=== PATIENT | female | born 1930 | race Hispanic/Latino ===

== ENCOUNTER 2016-08-01 11:08 | Emergency (ER) | payer MEDICARE ==
[2016-08-01 11:08] VITALS: BMI 34.8
[2016-08-01 11:19] VITALS: O2SAT 99
--- NOTE | 2016-08-01 11:49 | ED PDOC ---
Arrival/HPI - General Chief Complaint: Dizziness/Lightheaded Time Seen by Provider: 08/01/16 11:33 - History of Present Illness Narrative History of Present Illness (Text): 85F c/o transient episode of dizziness after she instilled a large amount of hydogen peroxide solution into her right ear around 10am today. she says she was only trying to place a few drops when more came out. her sx lasted about 30 minutes and are now resolved. she also reports muffled hearing since this incident. hse was placing these drops she says due to wax in her ear. she takes zestril for BP but has not taken today. Past Medical History - Infectious Disease Hx of Infectious Diseases: None - Cardiac Hx Cardiac Disorders: Yes (LVEF 57.1%) - Pulmonary Hx Respiratory Disorders: No - Neurological Hx Neurological Disorder: No - Renal Hx Renal Disorder: No - Endocrine/Metabolic Hx Endocrine Disorders: No - Hematological/Oncological Hx Blood Disorders: No - Integumentary Hx Dermatological Disorder: No - Musculoskeletal/Rheumatological Hx Falls: No - Gastrointestinal Hx Gastrointestinal Disorders: No (bm x 3/4 days) - Genitourinary/Gynecological Hx Reproductive Disorders: No (hysterectomy yrs ago) - Psychiatric Hx Psychophysiologic Disorder: No Hx Substance Use: No - Surgical History Hx Hysterectomy: Yes - Anesthesia Hx Anesthesia: No Family/Social History Smoking Status: Never Smoked Hx Alcohol Use: No Hx Substance Use: No Allergies/Home Meds Allergies/Adverse Reactions: Allergies metronidazole [From Flagyl] Allergy (Verified 08/01/16 11:11) SWELLING Home Medications: Home Meds Medication Instructions Recorded Confirmed Atorvastatin [Lipitor] 10 mg PO DAILY 08/01/16 08/01/16 Review of Systems - Review of Systems Constitutional: absent: Fevers Eyes: absent: Vision Changes ENT: Hearing Changes Respiratory: absent: SOB Cardiovascular: absent: Chest Pain Gastrointestinal: absent: Vomiting Neurological: absent: Headache, Focal Weakness Physical Exam Vital Signs Temp Pulse Resp BP Pulse Ox 08/01/16 11:14 97.5 F L 64 20 204/99 H 99 Appearance: Positive for: Well-Appearing, Non-Toxic, Comfortable Pain Distress: None Mental Status: Positive for: Alert and Oriented X 3 - Systems Exam Head: Present: Atraumatic Pupils: Present: PERRL Extroacular Muscles: Present: EOMI Ears: Present: Other (cerumen impaction bilateral) Mouth: Present: Moist Mucous Membranes Respiratory/Chest: Present: Clear to Auscultation. No: Accessory Muscle Use Cardiovascular: Present: Regular Rate and Rhythm Neurological: Present: GCS=15, CN II-XII Intact, Motor Func Grossly Intact, Normal Sensory Function, Normal Cerebellar Funct Skin: Present: Warm, Dry Psychiatric: Present: Alert, Oriented x 3 Medical Decision Making ED Course and Treatment: 08/01/16 12:[address] Staton who states patient can follow up in the office in the next few days. - Medication Orders Current Medication Orders: Discontinued Medications Lisinopril (Zestril) 5 mg PO STAT STA Stop: 08/01/16 11:44 Lisinopril (Zestril) 10 mg PO STAT STA Stop: 08/01/16 11:44 Disposition/Present on Arrival - Present on Arrival Any Indicators Present on Arrival: No History of DVT/PE: No History of Uncontrolled Diabetes: No Urinary Catheter: No History of Decub. Ulcer: No History Surgical Site Infection Following: None - Disposition Have Diagnosis and Disposition been Completed?: Yes Diagnosis: Impacted cerumen of both ears Disposition: HOME/ ROUTINE Disposition Time: 12:21 Condition: STABLE Additional Instructions: Please follow up with the ENT specialist: call to make an appointment in the next week. Return to the ER for any worsening symptoms or for any other concerns. Referrals: Nicholas Guevara MD [Primary Care Provider] - Follow up with primary Jonathon Staton DO [Doctor Osteopathy] - Follow up with primary
[2016-08-01 13:16] VITALS: BP 186/88; PULSE 78; RESP 16; TEMP 98.6
--- NOTE | 2016-08-01 23:39 | CARD ---
APPROVED REPORT EKG Measurement Heart [id number] <Conclusion> Sinus bradycardia Nonspecific ST and T wave abnormality Abnormal ECG
== END 2016-08-01 13:21 | disposition home or self-care (01) ==
LOC: ED 11:08
DX: H61.23 Impacted cerumen, bilateral (principal)

== ENCOUNTER 2017-06-15 10:05 | Emergency (ER) | payer MEDICARE ==
[2017-06-15 10:30] VITALS: TEMP 97.5; BMI 37.8
--- NOTE | 2017-06-15 11:07 | ED PDOC ---
Arrival/HPI - General Chief Complaint: Lower Extremity Problem/Injury Time Seen by Provider: 06/15/17 10:29 Historian: Patient - History of Present Illness Narrative History of Present Illness (Text): 06/15/17 11:02 86 year old female presents to the Emergency department complaining of left knee pain for three days. Patient took Aleve x2 when pain first started and has iced it multiple times with no change in swelling or pain. Patient is unable flex or bear weight on left knee. Patient states she has never had this pain before. Patient denies fever, chills, shortness of breath, loss of sensation, trauma, recent illness, recent travel, or any other complaints. PMD: Dr. Guevara Patient is requesting Dr. Monique. Time/Duration: < week (3 days) Symptom Onset: Gradual Symptom Course: Unchanged Context: Home Past Medical History - Provider Review Nursing Documentation Reviewed: Yes - Travel History Have you recently traveled outside [place] w/in the past 3 mons?: No - Infectious Disease Hx of Infectious Diseases: None - Cardiac Hx Cardiac Disorders: Yes (LVEF 57.1%) Hx Hypertension: Yes - Pulmonary Hx Respiratory Disorders: No - Neurological Hx Neurological Disorder: No - HEENT Hx HEENT Disorder: No - Renal Hx Renal Disorder: No - Endocrine/Metabolic Hx Endocrine Disorders: No - Hematological/Oncological Hx Blood Disorders: No - Integumentary Hx Dermatological Disorder: No - Musculoskeletal/Rheumatological Hx Musculoskeletal Disorders: Yes Hx Falls: No Other/Comment: left knee - Gastrointestinal Hx Gastrointestinal Disorders: No (bm x 3/4 days) - Genitourinary/Gynecological Hx Genitourinary Disorders: No Hx Reproductive Disorders: No (hysterectomy yrs ago) - Psychiatric Hx Psychophysiologic Disorder: No Hx Substance Use: No - Surgical History Hx Cholecystectomy: Yes Hx Hysterectomy: Yes - Anesthesia Hx Anesthesia: No Family/Social History - Physician Review Nursing Documentation Reviewed: Yes Family/Social History: Unknown Family HX Smoking Status: Never Smoked Hx Alcohol Use: No Hx Substance Use: No Allergies/Home Meds Allergies/Adverse Reactions: Allergies metronidazole [From Flagyl] Allergy (Verified 06/15/17 10:26) SWELLING naproxen Allergy (Verified 06/15/17 10:26) RASH Home Medications: Home Meds Medication Instructions Recorded Confirmed Atorvastatin [Lipitor] 20 mg PO DAILY 08/01/16 06/15/17 Lisinopril [Zestril] 20 mg PO DAILY 06/15/17 06/15/17 Review of Systems - Physician Review All systems were reviewed & negative as marked: Yes - Review of Systems Constitutional: Normal. absent: Fevers Respiratory: Normal. absent: SOB Cardiovascular: Normal Gastrointestinal: Normal Musculoskeletal: Joint Swelling (left knee), Other (left knee pain) Skin: Normal Neurological: Normal Psychiatric: Normal Physical Exam Vital Signs Reviewed: Yes Vital Signs Temp Pulse Resp BP Pulse Ox 06/15/17 13:26 60 18 186/80 H 97 06/15/17 10:26 97.5 F L 73 19 160/79 H 100 Blood Pressure: Hypertensive Pulse: Regular Respiratory Rate: Normal Appearance: Positive for: Well-Appearing, Non-Toxic, Comfortable Pain Distress: None Mental Status: Positive for: Alert and Oriented X 3 - Systems Exam Head: Present: Atraumatic, Normocephalic Pupils: Present: PERRL Extroacular Muscles: Present: EOMI Conjunctiva: Present: Normal Mouth: Present: Moist Mucous Membranes Neck: Present: Normal Range of Motion Respiratory/Chest: Present: Clear to Auscultation, Good Air Exchange. No: Respiratory Distress, Accessory Muscle Use Cardiovascular: Present: Regular Rate and Rhythm, Normal S1, S2. No: Murmurs Abdomen: No: Tenderness, Distention, Peritoneal Signs Back: Present: Normal Inspection Upper Extremity: Present: Normal Inspection. No: Cyanosis, Edema Lower Extremity: Present: Normal Inspection, Tenderness (suprapatellar, medial and lateral jt line), Temperature Abnormalties (left knee warmth), Neurovascularly Intact, Other (Left knee: Active and passive range of motion limited secondary to pain. Point tenderness to joint line and suprapatellar aspect. There is warmth on palpation. Sensation is intact above and below the joint. Motor function is intact. Pulses 2+ bilaterally. ). No: CALF TENDERNESS , NORMAL PULSES, Cyanosis, Normal ROM, Aman's Sign, Erythema Neurological: Present: GCS=15, CN II-XII Intact, Speech Normal, Motor Func Grossly Intact, Normal Sensory Function Skin: Present: Warm, Dry, Normal Color. No: Rashes Psychiatric: Present: Alert, Oriented x 3, Normal Insight, Normal Concentration Medical Decision Making ED Course and Treatment: 06/15/17 11:11 Impression: 86 year old male presents to the Emergency department complaining of left knee pain and swelling. Plan: -- Left knee xray -- Urinalysis -- Labs -- Reassess and disposition Progress Notes: 06/15/17 13:35 Mastromon[place] evaluation at bedside; aspirated knee and gave steroid inj Advised dispo home and follow up in office Dx: Pseudogout - Lab Interpretations Lab Results: 06/15/17 11:20 06/15/17 11:20 Lab Results 06/15/17 12:37: Fluid Type Synovial fluid, Synovial WBC 51634.0 H, Synovial RBC 56442.0 H, Synovial Neutrophils 85.2 H, Synovial Lymphocytes 14.8 H, Synov Monos /Macrophage 0, Synovial Fluid Comment Pending 06/15/17 11:20: Sodium 149 H, Potassium 4.2, Chloride 113 H, Carbon Dioxide 23, Anion Gap 17, BUN 22 H, Creatinine 1.0, Est GFR ( Amer) > 60, Est GFR ( Non-Af Amer) 53, Random Glucose 101, Calcium 10.5, Total Bilirubin 0.9, AST 17, ALT 17, Alkaline Phosphatase 96, Total Protein 7.1, Albumin 3.8, Globulin 3.3, Albumin/Globulin Ratio 1.2 06/15/17 11:20: WBC 8.9 D, RBC 4.68, Hgb 11.9 L, Hct 37.1, MCV 79.3 L, MCH 25.4 , MCHC 32.1, RDW 15.6 H, Plt Count 351, MPV 10.8, Gran % 73.0 H, Lymph % (Auto) 16.1 L, Divide % (Auto) 8.6 H, Eos % (Auto) 2.1, Baso % (Auto) 0.2, Gran # 6.52 H , Lymph # (Auto) 1.4, Divide # (Auto) 0.8 H, Eos # (Auto) 0.2, Baso # (Auto) 0.02 - RAD Interpretation Narrative RAD Interpretations (Text): 06/15/2017 12:47:21 PROCEDURE: Left Knee and patella Radiographs. FINDINGS: BONES: Normal. No fracture. JOINTS: There is extensive meniscal calcification consistent with chondrocalcinosis. There is no joint space narrowing JOINT EFFUSION: None. OTHER FINDINGS: None. IMPRESSION: Chondrocalcinosis Radiology Orders: 06/15/17 11:01 KNEE WITH PATELLA LEFT 3 VIEW [RAD] Stat - Medication Orders Current Medication Orders: Discontinued Medications Bupivacaine HCl (Marcaine 0.5%) 10 ml IJ ONCE ONE Stop: 06/15/17 12:46 Last Admin: 06/15/17 12:57 Dose: 10 ml Comments: administered by Dr. Burnham Methylprednisolone Acetate (Depo-Medrol) 80 mg IM ONCE ONE Stop: 06/15/17 12:46 Last Admin: 06/15/17 12:55 Dose: 80 mg Comments: administered by Dr. Burnham on L knee IM Administration Charges Document 06/15/17 12:55 EQ (Rec: 06/15/17 12:55 EQ [id number]) Charges for Administration # of IM Administrations 1 - Scribe Statement The provider has reviewed the documentation as recorded by the Minibadilia Hay Provider Scribe Attestation: All medical record entries made by the Scribe were at my direction and personally dictated by me. I have reviewed the chart and agree that the record accurately reflects my personal performance of the history, physical exam, medical decision making, and the department course for this patient. I have also personally directed, reviewed, and agree with the discharge instructions and disposition. Disposition/Present on Arrival - Present on Arrival Any Indicators Present on Arrival: Yes History of DVT/PE: No History of Uncontrolled Diabetes: No Urinary Catheter: No History of Decub. Ulcer: No History Surgical Site Infection Following: None - Disposition Have Diagnosis and Disposition been Completed?: Yes Diagnosis: Knee pain, acute, Pseudogout, Knee effusion Disposition: HOME/ ROUTINE Disposition Time: 13:46 Patient Plan: Discharge Condition: STABLE Discharge Instructions (ExitCare): Gout, Chronic Knee Pain (DC) Additional Instructions: Dear Brittany Ames for letting us take care of you. As per Dr. Monique's instructions, please follow up at his office within the next week. [facility] Referrals: Nicholas Guevara MD [Primary Care Provider] - Follow up with primary Forms: [employer] (Malay)
[2017-06-15 11:39] LABS: ALB/GLOB RATIO 1.2 (1.1-1.8); ALBUMIN 3.8 g/dL (3.0-4.8); ALT/SGPT 17 U/L (7-56); AST/SGOT 17 U/L (14-36); BLOOD UREA NITROGEN 22 mg/dL (7-21); CALCIUM 10.5 mg/dL (8.4-10.5); GFR AFRICAN-AMERICAN > 60; GFR NON-AFRICAN AMERICAN 53
[2017-06-15 11:53] LABS: BASO # 0.02 K/mm3 (0.0-2.0); BASO % 0.2 % (0.0-3.0); EOS # 0.2 (0.0-0.7); EOS % 2.1 % (1.5-5.0); GRAN # 6.52 (1.4-6.5); HEMOGLOBIN 11.9 g/dL (12.0-16.0); LYMPH # 1.4 (1.2-3.4); LYMPH % 16.1 % (22.0-35.0); MEAN CELL VOLUME 79.3 fl (80.0-105.0); MEAN CORPUSCULAR HEMOGLOBIN 25.4 pg (25.0-35.0); MEAN CORPUSCULAR HGB CONC 32.1 g/dl (31.0-37.0); MEAN PLATELET VOLUME 10.8 fl (7.0-11.0); MONO # 0.8 (0.1-0.6); MONO % 8.6 % (1.0-6.0); RBC 4.68 10^6/uL (3.5-6.1); RED CELL DISTRIBUTION WIDTH 15.6 % (11.5-14.5); WHITE BLOOD COUNT 8.9 10^3/ul (4.5-11.0)
[2017-06-15 12:39] LABS: FLUID TYPE SYNOVIAL FLUID
[2017-06-15] MEDS ORDERED: MethylPREDNISolone Depo 40 mg/ml Inj IM ONE (12:45)
[2017-06-15] MEDS ORDERED: Bupivacaine 0.5% Inj(30mL) IJ ONE (12:45)
--- NOTE | 2017-06-15 12:48 | RAD ---
PROCEDURE: Left Knee and patella Radiographs. HISTORY: Pain. COMPARISON: None. FINDINGS: BONES: Normal. No fracture. JOINTS: There is extensive meniscal calcification consistent with chondrocalcinosis. There is no joint space narrowing JOINT EFFUSION: None. OTHER FINDINGS: None. IMPRESSION: Chondrocalcinosis
[2017-06-15 13:11] LABS: SF GROSS APPEARANCE CLOUDY (CLEAR); SYNOVIAL FLUID MONO/MACROPHAGE 0 % (0-0)
[2017-06-15 13:27] VITALS: BP 186/80; PULSE 60; RESP 18; O2SAT 97
--- NOTE | 2017-06-15 21:28 | CON ---
DATE: 06/15/2017 ORTHOPEDIC CONSULTATION HISTORY OF PRESENT ILLNESS: Patient is an 86-year-old female with swollen left knee. X-ray shows osteoarthritis of the left knee with calcified medial and lateral meniscus consistent with pseudogout and has an effusion. So, we took the opportunity to aspirate her left knee of 60 mL of serosanguineous fluid, sent to the lab for culture, cell count, crystals and I injected the left knee for inflammatory arthritis with Depo-Medrol and Marcaine, and it does not look like an infection, looks more like an arthritis with calcified meniscus, which could be pseudogout, calcium pyrophosphate disease. This patient could go home today, follow with Dr. Guevara and myself. Scott Monique DO
== END 2017-06-15 14:15 | disposition home or self-care (01) ==
LOC: ED 10:05
DX: M11.262 Other chondrocalcinosis, left knee (principal); M25.462 Effusion, left knee; M25.562 Pain in left knee
CPT/HCPCS: 73562; 80053; 85025; 87070; 89051; 89060; 96372; 99283; J1030